=== PATIENT | female | born 1965 | race Caucasian/White ===

== ENCOUNTER 2021-12-07 07:11 | Day surgery (SDC) | payer BC ==
[2021-12-07] MEDS ORDERED: fentaNYL 100 MCG/2 ML SDV ONE (07:28)
[2021-12-07] MEDS ORDERED: Propofol 200 MG/20 ML SDV ONE (07:28)
[2021-12-07] MEDS ORDERED: Midazolam 1 MG/ML 2 ML SDV ONE (07:28)
[2021-12-07] MEDS ORDERED: Sodium Chloride 0.9% 1,000 ML IV SCH (08:00)
== END 2021-12-07 10:45 | disposition home or self-care (01) ==
LOC: JP.SDS 07:11
PROVIDERS: ATTEND Surgery
DX: Z12.11 Encounter for screening for malignant neoplasm of colon (principal); K63.5 Polyp of colon; E11.9 Type 2 diabetes mellitus without complications
CPT/HCPCS: 88305; J2250; J2704; J3010; J7030

== ENCOUNTER 2024-10-12 06:24 | Day surgery (SDC) | payer BC ==
[2024-10-12 06:50] LABS: HEMATOCRIT 43.1 % (34.3-46.0); HEMOGLOBIN 14.7 g/dL (11.2-15.5); MEAN CORPUSCULAR HEMOGLOBIN 32.4 pg (31.6-35.5); MEAN CORPUSCULAR HGB CONC 34.1 g/dL (31.6-35.5); MEAN CORPUSCULAR VOLUME 94.9 fL (81.4-99.0); RED BLOOD CELL COUNT 4.54 M/uL (3.77-5.24); WHITE BLOOD CELL COUNT,WBC 6.9 K/uL (3.2-11.0)
[2024-10-12] MEDS ORDERED: Propofol 200 MG/20 ML SDV ONE (06:59)
[2024-10-12] MEDS ORDERED: Neostigmine Methylsulfate 10 MG/10 ML MDV ONE (06:59)
[2024-10-12] MEDS ORDERED: Succinylcholine 200 MG/10 ML MDV ONE (06:59)
[2024-10-12] MEDS ORDERED: Ondansetron 4 MG/2 ML SDV ONE (06:59)
[2024-10-12] MEDS ORDERED: Dexamethasone 4 MG/ML SDV ONE (06:59)
[2024-10-12] MEDS ORDERED: Rocuronium 50 MG/5 ML Vial ONE (06:59)
[2024-10-12] MEDS ORDERED: Glycopyrrolate 0.2 MG/ML 5 ML MDV ONE (06:59)
[2024-10-12] MEDS ORDERED: fentaNYL 250 MCG/5 ML SDV ONE ×2 (07:02→08:00)
[2024-10-12 07:11] LABS: ALANINE AMINOTRANSFERASE,ALT 39 U/L (12-78); ALBUMIN 4.1 g/dL (3.4-5.0); ALKALINE PHOSPHATASE 82 U/L (46-116); ASPARTATE AMNIOTRANSFERASE,AST 23 U/L (15-37); BILIRUBIN TOTAL 0.7 mg/dL (0.2-1.0); BLOOD UREA NITROGEN,BUN 14 mg/dL (7-18); CALCIUM 9.3 mg/dL (8.5-10.1); CARBON DIOXIDE,CO2 30 mmol/L (21-32); CHLORIDE,CL 100 mmol/L (100-108); CREATININE 1.3 mg/dL (0.6-1.0); EST CRCL DRUG DOSING (CG) 40.24 mL/min; ESTIMATED GFR 47 mL/min (>60); GLUCOSE RANDOM 138 mg/dL (74-106); POTASSIUM,K 3.2 mmol/L (3.6-5.2); PROTEIN TOTAL,TP 8.3 g/dL (6.4-8.2); SODIUM,NA 141 mmol/L (140-148)
[2024-10-12] MEDS: Indocyanine Green 25 MG SDV IV ONE (07:11)
[2024-10-12 07:12] LABS: ANION GAP 14.2 mmol/L (5.0-14.0)
[2024-10-12] MEDS: metroNIDAZOLE/Normal Saline 500 MG in Premix Bag 1 BAG IV ONE (07:24)
[2024-10-12] MEDS: ceFAZolin 2 GM in Premix Bag 1 BAG IV ONE (07:30)
[2024-10-12] MEDS: Lactated Ringers 1,000 ML IV SCH (07:38)
[2024-10-12] MEDS: Bupivacaine 0.5% 50 ML MDV ONE (08:37)
[2024-10-12] MEDS: Lidocaine 1% with EPINEPHrine 1:100,000 50 ML MDV ONE (08:38)
[2024-10-12] MEDS ORDERED: Scopalamine 1mg/3day Transdermal Patch ONE (09:51)
== END 2024-10-12 12:59 | disposition home or self-care (01) ==
LOC: JP.SDS 06:24
PROVIDERS: ATTEND Surgery
DX: K80.12 Calculus of gallbladder with acute and chronic cholecystitis without obstruction (principal); K82.A1 Gangrene of gallbladder in cholecystitis; E11.9 Type 2 diabetes mellitus without complications; E03.9 Hypothyroidism, unspecified; E66.813 Obesity, class 3; Z68.41 Body mass index [BMI] 40.0-44.9, adult; Z79.890 Hormone replacement therapy; Z79.899 Other long term (current) drug therapy
CPT/HCPCS: 00790-QZ; 36415; 80053; 85027; A9270-GY; J0171; J0330; J0665; J0690; J1100; J1596; J1836; J2405; J2704; J2710; J2795; J3010; J3490; J7120